=== PATIENT | female | born 1985 | race African-American/Black ===

== ENCOUNTER 2016-10-21 20:29 | Emergency (ER) | payer OTHER ==
[~2016-10-21 20:29] MED LIST: AUGMENTIN875 MG PO; PEN-VEE K PO; VOLTAREN75 MG PO
== END 2016-10-21 22:05 | disposition home or self-care (01) ==
LOC: CED 20:29
DX: J45.901 Unspecified asthma with (acute) exacerbation (principal); F17.200 Nicotine dependence, unspecified, uncomplicated
CPT/HCPCS: 94640; 99283